=== PATIENT | female | born 1980 | race Caucasian/White ===

== ENCOUNTER → 2016-10-14 | Outpatient (CLI) | payer BC ==
[2016-10-14 11:08] LABS: Basophils % (A) 0 %; CHCM 32.5; Eosinophils # (A) 0.1 k/uL (0-0.7); Eosinophils % (A) 2 %; HCT 43.8 % (34.0-46.0); HDW 2.08; HGB 14.1 gm/dL (11.4-16.0); Luc # (Auto) 0.11; Luc % (Auto) 2; Lymphocytes # (A) 1.6 k/uL (1.0-4.8); Lymphocytes % (A) 26 %; MCH 30.9 pg (25.0-35.0); MCHC 32.3 g/dL (31.0-37.0); MCV 95.9 fL (80.0-100.0); Mean Platelet Volume 7.7; Monocytes # (A) 0.5 k/uL (0-1.0); Monocytes % (A) 8 %; Neutrophils # (A) 3.6 k/uL (1.3-7.7); Neutrophils % (A) 61 %; RBC 4.57 m/uL (3.80-5.40); RDW 12.9 % (11.5-15.5); WBC (Perox) 6.16
== END | disposition home or self-care (01) ==
LOC: LABPAT 10:28
PROVIDERS: ATTEND Obstetrics & Gynecology
DX: Z01.812 Encounter for preprocedural laboratory examination (principal)
CPT/HCPCS: 85025

== ENCOUNTER 2016-10-20 06:14 | Day surgery (SDC) | payer BC ==
[2016-10-19 08:35] VITALS: BMI 18.7
--- NOTE | 2016-10-19 20:55 | HP ---
DATE OF ADMISSION: HISTORY: This is a 36-year-old, 6, para 6 woman with a history of dysmenorrhea and menorrhagia. She desires surgical management in the form of NovaSure endometrial ablation. She has had a benign endometrial biopsy and pelvic ultrasound shows appropriate sized uterus with normal endometrial cavity. ALLERGIES: NONE. MEDICATIONS: None. PAST MEDICAL HISTORY: Dysmenorrhea and menorrhagia. PAST SURGICAL HISTORY: Cholecystectomy, shoulder surgery, tonsillectomy, tubal ligation. 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 She has had a tubal ligation. No history of abnormal Pap smears or STDs. SOCIAL HISTORY: She is . She smokes 1/2 pack of cigarettes per day. No drug or alcohol use. FAMILY HISTORY: Significant for mother and sister with thyroid abnormalities. REVIEW OF SYSTEMS: Negative for weight gain, weight loss, headaches, nausea, vomiting, constipation, blood in the stools. Positive for abdominal pain, pelvic pain, intermittent diarrhea, heavy menses and painful periods. PHYSICAL EXAMINATION: VITAL SIGNS: Blood pressure is 126/80, pulse 70. Height 5 feet 6 inches, weight 119 pounds. In general, this is a pleasant, slim, female in no apparent distress. HEENT exam is unremarkable with no palpable lymphadenopathy or thyromegaly. The lungs are clear to auscultation bilaterally and the heart has a regular rate and rhythm. The abdomen is slim, soft with minimal generalized pelvic tenderness, no rebound, no guarding. On pelvic examination, she has normal female external genitalia without lesions or irritation. She has mild and generalized pelvic pain on bimanual examination. ASSESSMENT: This is a 36-year-old, 6, para 6 woman with symptomatic menorrhagia and dysmenorrhea, She is going to undergo NovaSure endometrial ablation. This procedure has been reviewed with the patient in detail, including risks and anticipated recovery. Risks include but are not limited to the bleeding, infection, transfusion, uterine perforation with possible injury to internal structures such as the bowel or bladder. The patient understands possible risk of ongoing bleeding or pain and need for further treatment in the future. She understands these risks and consent has been obtained. She is scheduled for diagnostic hysteroscopy and NovaSure endometrial ablation on 10/20/2016.
[~2016-10-20 06:14] MED LIST: DEXAMETHASONE SOD PHOSPHATE 10 MG/ML 1 ML VIAL IV ONE; LIDOCAINE 1% 20 ML VIAL (10MG/ML) FOR IV START INTRADERMA PRN; MIDAZOLAM 2 MG/2 ML VIAL IV PRN; ONDANSETRON 4 MG/2 ML VIAL IVP ONE; Pre Op ABX Message 1 EACH MISC MISCELLANE ONE; SCOPOLAMINE 1.5MG/72HR PATCH TRANSDERM ONE
[2016-10-20 06:33] VITALS: RESP 16
[2016-10-20] MEDS: LACTATED RINGERS 1,000 ML IV SCH ×2 (06:46→09:47)
[2016-10-20] MEDS ORDERED: LIDOCAINE 1% INJ 10MG/ML (20 ML MDV) ONE (07:25)
[2016-10-20] MEDS ORDERED: fentaNYL (PF) 50 MCG/ML 2 ML AMP ONE (07:25)
[2016-10-20] MEDS ORDERED: KETOROLAC 30 MG/ML 1 ML VIAL ONE (07:25)
[2016-10-20] MEDS ORDERED: PROPOFOL 10 MG/ML 20 ML VIAL IV ONE (07:25)
[2016-10-20] MEDS ORDERED: MIDAZOLAM 2 MG/2 ML VIAL ONE (07:25)
[2016-10-20] MEDS ORDERED: LIDOCAINE 1%-EPI 1:100,000 20 ML VIAL SUBMUCOSAL ONE (07:42)
--- NOTE | 2016-10-20 07:54 | P.OP ---
Date of Procedure: 10/20/16 Preoperative Diagnosis: Menorrhagia and dysmenorrhea Postoperative Diagnosis: Same Procedure(s) Performed: Diagnostic hysteroscopy and NovaSure endometrial ablation Anesthesia: MAC Surgeon: Rhonda Jenkins Estimated Blood Loss (ml): 5 IV fluids (ml): 600 Urine output (ml): 25 Pathology: none sent Condition: stable Disposition: PACU Operative Findings: Normal-appearing intrauterine cavity. Bilateral tubal ostia are visualized. Following completion of the treatment cycle complete desiccation of the endometrium was appreciated. Description of Procedure: Patient and her family were met in the preoperative holding area and all questions were answered, she was taken to the operating room where anesthetic was administered without incident. She was in positioned, prepped and draped in the dorsal lithotomy position. Appropriate timeout procedures were undertaken. The bladder was drained for approximately 25 mL's of clear urine area exam under anesthetic was performed of the uterus felt small mobile and in the midline. She does have a second-degree cervical uterine prolapse. A single -sided speculum was placed in the vagina and the cervix was grasped anteriorly with a single-tooth tenaculum. Paracervical block with lidocaine plus epinephrine was placed in the usual fashion. 10 mL's was used. The uterus was sounded to 8.5 cm. The cervix was then sequentially dilated using Hegar dilators to allow for passage of the diagnostic hysteroscope. The hysteroscope was introduced and the above findings were noted. The hysteroscope was removed and the cervix was further dilated to allow for passage of the NovaSure ablation device. The device was inserted in the uterus with a cavity length of 5.0 cm and a width of 3.5 cm. Cavity assessment test was passed. The device was enabled for treatment cycle of the 124 seconds with a power of 96 W. Following cessation of the treatment cycle the device was removed. The hysteroscope was reintroduced and complete desiccation of the endometrium was appreciated. The scope was removed. The tenaculum was removed. The cervix was observed and no active bleeding was noted. Speculum was removed from the vagina. The patient was awoken from anesthetic without incident and transported to recovery area in stable condition. All counts reported to me as correct by the operating room staff.
[2016-10-20] MEDS: HYDROmorphone 1 MG/ML 1 ML SYRINGE IVP PRN ×4 (08:13→08:33)
[2016-10-20 08:21] VITALS: TEMP 97.7
[2016-10-20 09:23] VITALS: BP 103/67; PULSE 56
== END 2016-10-20 10:00 | disposition home or self-care (01) ==
LOC: OR 06:14
PROVIDERS: ATTEND Obstetrics & Gynecology
DX: N92.0 Excessive and frequent menstruation with regular cycle (principal); N94.6 Dysmenorrhea, unspecified; N81.2 Incomplete uterovaginal prolapse; F17.210 Nicotine dependence, cigarettes, uncomplicated
CPT/HCPCS: 81025; 58563; J2250; J1100; J2405; J2001; J3010; J1885; J1170; J2704

== ENCOUNTER 2017-12-08 18:16 | Emergency (ER) | payer BC ==
--- NOTE | 2017-12-08 19:25 | ED ---
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 Patient states she was at work at [employer] cutting a zip tie off of a tote when she accidentally cut the finger pad of her second digit on the left hand. Patient is not sure if her tetanus is up to date. Patient is clearly anxious over the prospect of getting stitches. Patient can move her finger and flex the DIP joint. Patient states she has sensation in her distal phalanx of the second digit of the left hand as well. Patient states she also has a small cut to the finger pad of the third digit on the left hand. Patient denies cuts anywhere else. Patient denies any other injuries at this time. Patient denies any other complaints such as headache, shortness of breath, chest pain, abdominal pain, nausea or vomiting. - Related Data Previous Rx's Medication Instructions Recorded Ibuprofen [Motrin] 800 mg PO Q6HR PRN #20 tab 10/20/16 Allergies Allergy/AdvReac Type Severity Reaction Status Date / Time No Known Allergies Allergy Verified 12/08/17 18:58 Review of Systems ROS Statement: Those systems with pertinent positive or pertinent negative responses have been documented in the HPI. ROS Other: All systems not noted in ROS Statement are negative. Past Medical History Past Medical History: No Reported History History of Any Multi-Drug Resistant Organisms: None Reported Past Surgical History: Cholecystectomy, Orthopedic Surgery, Tonsillectomy Additional Past Surgical History / Comment(s): LT SHOULDER ROTATOR CUFF REPAIR Past Anesthesia/Blood Transfusion Reactions: No Reported Reaction Past Psychological History: No Psychological Hx Reported Smoking Status: Current every day smoker Past Alcohol Use History: None Reported Past Drug Use History: None Reported - Past Family History Mother Family Medical History: No Reported History General Exam Limitations: no limitations General appearance: alert, in no apparent distress, anxious (Patient is anxious about the prospect of getting stitches.) Head exam: Present: atraumatic, normocephalic, normal inspection Eye exam: Present: normal appearance, PERRL, EOMI. Absent: scleral icterus, conjunctival injection, periorbital swelling Respiratory exam: Present: normal lung sounds bilaterally. Absent: respiratory distress, wheezes, rales, rhonchi, stridor Cardiovascular Exam: Present: regular rate, normal rhythm, normal heart sounds. Absent: systolic murmur, diastolic murmur, rubs, gallop, clicks Extremities exam: Present: full ROM (Full range of motion of the second digit.) , tenderness (Tenderness of the distal phalanx of the second digit), normal capillary refill (Refill less than 2 seconds in the second digit.), other ( There is a 1.5 cm laceration to the distal phalanx of the second digit of the left upper extremity. There is a shallow 0.5 cm laceration to the distal phalanx of the third digit of the left upper extremity.) Course Vital Signs 12/08/17 18:58 Temperature 98.6 F Pulse Rate 95 Respiratory 18 Rate Blood Pressure 133/96 O2 Sat by Pulse 98 Oximetry Medical Decision Making - Medical Decision Making 37-year-old female presents to the emergency department for a chief complaint of laceration to the distal phalanx of the second digit. 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 Patient received a tetanus in the emergency department. On exam there is a 2 cm laceration across the finger pad of the second digit of the left upper extremity. Capillary refill 2+ in the second digit and radial pulse 2+. Patient has full range of motion of the second and third digits on the left hand as well as full sensation. X-ray was obtained which showed no fractures or dislocations. 6 sutures were applied to the affected area on the second digit. Adhesive skin glue was used for the small laceration on the third digit. Patient will return to the emergency department in 7-10 days for suture removal. She will monitor for signs of infection and return if she notices any. She will return if she has any worsening symptoms or cannot move her finger. Otherwise she will follow up with primary care in 1-2 days. Disposition Clinical Impression: Laceration Disposition: HOME SELF-CARE Condition: Good Instructions: Care For Your Stitches (ED), Laceration (ED) Additional Instructions: Please follow up with primary care in 1-2 days. Please return to the emergency department if you notice any worsening symptoms, signs of infection, or cannot bend or feel your finger. Otherwise return in 7-10 days to have sutures removed. You may take Motrin or Tylenol for pain relief. Is patient prescribed a controlled substance at discharge?: No Referrals: Bossman Ferrari MD [Primary Care Provider] - 1-2 days Time of Disposition: 20:29
--- NOTE | 2017-12-08 19:41 | XR ---
EXAMINATION TYPE: XR finger LT DATE OF EXAM: 12/08/2017 COMPARISON: NONE HISTORY: Laceration injury with pain. TECHNIQUE: 3 views of left second digit are obtained. FINDINGS: No acute fracture or dislocation is evident. The joint spaces are preserved. No suspicious radiodense foreign body is seen. Lucency consistent with laceration injury along the radial palmar blandon rface at the base of second distal phalanx is noted. IMPRESSION: Laceration injury, no acute fracture or dislocation is present.
[2017-12-08] MEDS ORDERED: TOPICAL SKIN ADHESIVE 1 EACH AMP TOPICAL ONE (19:54)
[2017-12-08] MEDS ORDERED: DIPH,PERTUS(ACELL)TETVAC-LF 0.5 ML VIAL IM ONE (20:24)
[2017-12-08 20:46] VITALS: BP 140/75; PULSE 82; RESP 16; TEMP 97.3
== END 2017-12-08 20:45 | disposition home or self-care (01) ==
LOC: EC 18:16
DX: S61.211A Laceration without foreign body of left index finger without damage to nail, initial encounter (principal); F17.200 Nicotine dependence, unspecified, uncomplicated; Z23 Encounter for immunization; W45.8XXA Other foreign body or object entering through skin, initial encounter; Y99.0 Civilian activity done for income or pay
CPT/HCPCS: 12001; 90471; 90715; 99283

== ENCOUNTER 2019-03-30 14:18 | Emergency (ER) | payer BC ==
--- NOTE | 2019-03-30 14:29 | ED ---
Medical Clearance HPI - General Stated complaint: ETOH, SOB Time Seen by Provider: 03/30/19 14:24 Source: RN notes reviewed, old records reviewed - History of Present Illness Initial comments: This is a 38-year-old female the ER for evaluation. Patient is refusing questioning, refusing to be cooperative for evaluation. Patient's brought in by PD, alcohol intoxication anxious, angry. Patient's brought in for evaluation medical clearance for incarceration Complaint: medical clearance requested -: unknown Reason for Medical Clearance: intoxication, medical condition Place: street Alleged Intoxication: Yes Compliant with Home Medications: No Traumatic Symptoms: denies traumatic injury Treatments Prior to Arrival: none Home medications: Previous Rx's Medication Instructions Recorded Ibuprofen [Motrin] 800 mg PO Q6HR PRN #20 tab 10/20/16 Allergies/Adverse reactions: Allergies Allergy/AdvReac Type Severity Reaction Status Date / Time No Known Allergies Allergy Verified 03/30/19 14:30 Review of Systems ROS Statement: Those systems with pertinent positive or pertinent negative responses have been documented in the HPI. ROS Other: All systems not noted in ROS Statement are negative. Past Medical History Past Medical History: No Reported History History of Any Multi-Drug Resistant Organisms: None Reported Past Surgical History: Cholecystectomy, Orthopedic Surgery, Tonsillectomy Additional Past Surgical History / Comment(s): LT SHOULDER ROTATOR CUFF REPAIR Past Anesthesia/Blood Transfusion Reactions: No Reported Reaction Past Psychological History: No Psychological Hx Reported Smoking Status: Current every day smoker Past Alcohol Use History: None Reported Past Drug Use History: None Reported - Past Family History Mother Family Medical History: No Reported History General Exam General appearance: alert, appears intoxicated, anxious Head exam: Present: atraumatic, normocephalic, normal inspection Eye exam: Present: normal appearance, PERRL, EOMI. Absent: scleral icterus, conjunctival injection, periorbital swelling ENT exam: Present: normal exam, mucous membranes moist Neck exam: Present: normal inspection. Absent: tenderness, meningismus, lymphadenopathy Respiratory exam: Present: normal lung sounds bilaterally. Absent: respiratory distress, wheezes, rales, rhonchi, stridor Cardiovascular Exam: Present: regular rate, normal rhythm, normal heart sounds. Absent: systolic murmur, diastolic murmur, rubs, gallop, clicks GI/Abdominal exam: Present: soft, normal bowel sounds. Absent: distended, tenderness, guarding, rebound, rigid Extremities exam: Present: normal inspection, full ROM, normal capillary refill. Absent: tenderness, pedal edema, joint swelling, calf tenderness Back exam: Present: normal inspection Neurological exam: Present: alert, oriented X3, CN II-XII intact Psychiatric exam: Present: normal affect, normal mood Skin exam: Present: warm, dry, intact, normal color. Absent: rash Course Vital Signs 03/30/19 03/30/19 14:25 14:32 Temperature 98.3 F Pulse Rate 123 H Respiratory 20 20 Rate Blood Pressure 140/99 O2 Sat by Pulse 98 Oximetry Medical Decision Making - Medical Decision Making 38 female the ER for evaluation, patient is medically clear for intermediate incarceration, intoxicated. Disposition Clinical Impression: Medical clearance for incarceration Disposition: HOME SELF-CARE Condition: Good Is patient prescribed a controlled substance at d/c from ED?: No Referrals: Bossman Ferrari MD [Primary Care Provider] - 1-2 days
[2019-03-30 14:31] VITALS: BP 140/99; PULSE 123; RESP 20; TEMP 98.3
== END 2019-03-30 14:38 | disposition home or self-care (01) ==
LOC: EC 14:18
DX: Z02.89 Encounter for other administrative examinations (principal); F10.129 Alcohol abuse with intoxication, unspecified; R45.4 Irritability and anger; F17.200 Nicotine dependence, unspecified, uncomplicated
CPT/HCPCS: 99285